=== PATIENT | female | born 1955 | race Two or more races ===

== ENCOUNTER → 2021-07-24 | Day surgery (SDC) | payer MEDICARE, MEDICAID ==
[~2021-07-24] VITALS: Ht 160 cm; Wt 100.7 kg
[~2021-07-24] MED LIST: ACETYLCHOLINE CHLORIDE INTRAOCULAR SOLUTION 1:100 ELECTROLYTE DILUENT IO ONE; ASPI-1497 PO; ATOR20TA PO; BALANCED SALT IRRIG SOLN 15ML ONE; BALANCED SALT IRRIG SOLN COMB1 500ML OP ONE; BENA20TA10 PO; BUPR200T2 PO; CIPROFLOXACIN 0.3% OPHTH SOLN 2.5ML ONE; CYCLOPENTOLATE HCL 1% OPHTH DROPS 2ML LEFTEYE SCH; CYCLOPENTOLATE HCL 1% OPHTH DROPS 2ML ONE; DULA1.5P SQ; FENTANYL CITRATE/PF 50MCG/ML 2ML VIAL ONE; GLIP5TAB12 PO; INSU100I28 SQ; LIDOCAINE HCL/PF 2% 20 MG/ML 10ML VIAL ONE; METF-416 PO; MIDAZOLAM HCL 2 MG/2 ML VIAL ONE; PHENYLEPHRINE HCL 10% OPHTH DROPS 5ML LEFTEYE SCH; PHENYLEPHRINE HCL 2.5% OPHTH DROPS 2ML ONE; PREDNISOLONE ACETATE 1% OPHTH DROPS 5ML ONE; TETRACAINE 0.5% OPHTH DROPS 4ML ONE; TROPICAMIDE 1% OPHTH DROPS 15ML LEFTEYE SCH; TROPICAMIDE 1% OPHTH DROPS 15ML ONE
== END | disposition home or self-care (01) ==
LOC: OR 06:13
PROVIDERS: ATTEND Ophthalmology
DX: E11.36 Type 2 diabetes mellitus with diabetic cataract (principal); T85.22XA Displacement of intraocular lens, initial encounter; I10 Essential (primary) hypertension; E78.00 Pure hypercholesterolemia, unspecified; Z79.84 Long term (current) use of oral hypoglycemic drugs; Z79.899 Other long term (current) drug therapy; Z98.890 Other specified postprocedural states; X58.XXXA Exposure to other specified factors, initial encounter; Y93.89 Activity, other specified; Y92.89 Other specified places as the place of occurrence of the external cause; Y99.8 Other external cause status
CPT/HCPCS: 66825; 82962; 87426; C1893; J2250; J3010; J3490